=== PATIENT | female | born 1960 | race Two or more races ===

== ENCOUNTER → 2017-12-07 | Outpatient (CLI) | payer OTHER | END | disposition home or self-care (01) | LOC: RAD 11-29 14:57 | DX: N62 Hypertrophy of breast (principal) ==

== ENCOUNTER → 2018-06-04 | Emergency (ER) | payer OTHER ==
[~2018-06-04] VITALS: Ht 167.6 cm; Wt 72.6 kg
[~2018-06-04] MED LIST: LIPITOR20 MG; SYNTHROID50 MCG
== END | disposition left against medical advice (07) ==
LOC: ER 10:27
DX: Z53.20 Procedure and treatment not carried out because of patient's decision for unspecified reasons (principal)

== ENCOUNTER 2019-11-28 15:12 | Outpatient (CLI) | payer OTHER | END 2019-11-28 15:29 | disposition home or self-care (01) | LOC: NUCLEAR 15:12 | DX: M81.0 Age-related osteoporosis without current pathological fracture (principal); Z13.820 Encounter for screening for osteoporosis ==

== ENCOUNTER 2019-12-26 10:57 | Outpatient (CLI) | payer OTHER | END 2019-12-26 11:05 | disposition home or self-care (01) | LOC: SONOGRAMA 10:57 → MAMO-SONO 11:00 → SONOGRAMA 11:05 | DX: N95.0 Postmenopausal bleeding (principal) ==

== ENCOUNTER 2020-04-08 14:02 | Outpatient (CLI) | payer OTHER | END 2020-04-08 14:17 | disposition home or self-care (01) | LOC: MAMO-SONO 14:02 | PROVIDERS: ATTEND Family Medicine | DX: Z12.31 Encounter for screening mammogram for malignant neoplasm of breast (principal); N60.11 Diffuse cystic mastopathy of right breast; N60.12 Diffuse cystic mastopathy of left breast ==

== ENCOUNTER 2021-09-28 11:05 | Outpatient (CLI) | payer OTHER | END 2021-09-28 11:22 | disposition home or self-care (01) | LOC: MAMO-SONO 11:05 | PROVIDERS: ATTEND Internal Medicine Endocrinology, Diabetes & Metabolism | DX: N64.4 Mastodynia (principal); N61.0 Mastitis without abscess; Z12.31 Encounter for screening mammogram for malignant neoplasm of breast; M25.561 Pain in right knee; M25.562 Pain in left knee ==

== ENCOUNTER 2022-12-28 13:53 | Outpatient (CLI) | payer OTHER | END 2022-12-28 13:57 | disposition home or self-care (01) | LOC: MAMO-SONO 13:53 | PROVIDERS: ATTEND Specialist | DX: N60.11 Diffuse cystic mastopathy of right breast (principal); N60.12 Diffuse cystic mastopathy of left breast ==